=== PATIENT | female | born 1975 | race Caucasian/White ===

== ENCOUNTER → 2021-06-19 | Emergency (ER) | payer BC ==
[~2021-06-19] MED LIST: CEFTRIAXONE 1000 MG/VIAL ONE; KETOROLAC 30 MG/ML INJ ONE; MAGNESIUM OXIDE 400 MG TAB ONE; MAGNESIUM SULFATE 1 gm IVPB 1 GM/100 ML BAG IV ONE; MORPHINE 4 MG/ML SYR ONE; NA CHLORIDE 0.9% 1,000 ML ONE; ONDANSETRON 4 MG/2 ML VIAL ONE; PROMETHAZINE INJ 25 MG/ML AMP ONE; TAMSULOSIN 0.4 MG SR CAP ONE
[2021-06-19 08:16] LABS: ALT/SGPT 64 U/L (12-78); AST/SGOT 44 U/L (15-37); Albumin 3.7 g/dL (3.4-5.0); Alkaline Phosphatase 76 U/L (45-117); BUN Blood Urea Nitrogen 14 mg/dL (7-18); Bicarbonate 22 mmol/L (21-32); Bilirubin Direct < 0.1 mg/dL (0-0.2); Bilirubin Total 0.2 mg/dL (0.2-1.0); Glucose Level 170 mg/dL (74-106); Lipase 136 U/L (73-393); Potassium 4.4 mmol/L (3.5-5.1); Protein, Total 7.5 g/dL (6.4-8.2); Sodium Level 137 mmol/L (136-145)
[2021-06-19 08:19] LABS: Absolute Lymphocytes (CBC) 1.5 K/uL (0.7-4.9); MPV 8.5 fL (7.6-11.3); RBC Red Blood Cell Count 4.31 M/uL (3.86-4.86)
[2021-06-19 09:00] LABS: Urine Bacteria NONE SEEN /HPF (<20)
[2021-06-19 10:57] LABS: Urine Blood Trace-intact (Negative); Urine Glucose Negative (Negative); Urine Protein Negative (Negative); Urine Specific Gravity 1.015 (1.005-1.030)
--- NOTE | 2021-06-19 12:41 | RAD REPORT ---
EXAM DESCRIPTION: CT - Abdomen Pelvis W Contrast - 06/19/2021 7:07 am CLINICAL HISTORY: The patient is 49 years old and is Female: ABD PAIN AND VOMITING. TECHNIQUE: Axial computed tomography images of thee abdomen and pelvis with intravenous contrast. Sa gittal and coronal reformatted images were created and reviewed. This CT exam was performed using one or more of the following does reduction techniques: Automated exposure control, adjustment of the mA and/or kV according to patient size, and/or use of iterative reconstruction technique. COMPARISON: No relevant prior studies abailable. FINDINGS: Lung bases: Unremarkable. No mass. No consolidation. Mediastinum: Small hiatal hernia. ABDOMEN: Liver: 1 cm low density lesion in thee right live which is nonspecific but may represent a cyst. Ill- defined nonspecific 8 mm low-density lesion in thee dome of the liver. 1 cm low density lesion in the right liver adjacent to the IVC with nodular hypodensity centrally whi ch is nonspecific but may represent small hemangioma. Gallbladder and bile ducts: Unremarkable. No calcified stones. No ductal dilation. Pancreas: Unremarkable. No mass. No ductal dilation. Spleen: Unremarkable. No splenomegaly. Adrenals: Unremarkable. No mass. Kidneys and ureters: 4 mm left UVJ stone. Mild elft hydroureteronephrosis. Delayed enhabncement of th e left kidney. Multiple simple cysts in the kidneys bilaterally. ACR white Paper guidelines (Herdavon, et al. JACR 2018 ; 15(2):264-273) suggested no follow-up is necessary. There are a few small nonobstructing calcifications in the kidneys bilaterally. Stomach and bowel: Unremarkable. No obstruction. No mucosal thickening. PELVIS: Appendix: No findings to suggest acute appendicitis. Bladder: Unremarkable. No mass. Reproductive: Nodularity within thee uterus suggestive of fibroids. Suggestion of a corpus luteum cys t in the left ovary. ABDOMEN and PELVIS: Intraperitoneal space: Unremarkable. No free air. No significant fluid collection. Bones/Joints: No acute fracture. No dislocation. Soft tissues: Unremarkable. Vasculature: Unremarkable. No abdominal aortic aneurysm. Lymph nodes: Unremarkable. No enlarged lymph nodes. IMPRESSION: 4 mm left UVJ stone. Mild left hydroureteronephrosis. Delayed enhancement of the left ki dney. Electronically signed by: Jeff Roberts MD 06/19/2021 5:08 AM RECORDS ASSISTANT Due to temporary technical issues with the PACS/Fluency reporting system, reports are being signed by the in house radiologist without review as a courtesy to ensure prompt reporting. The interpreting r adiologist is fully responsible for the content of the report.
== END ==
LOC: ER 06:57
DX: N20.1 Calculus of ureter (principal); N39.0 Urinary tract infection, site not specified; Z20.822 Contact with and (suspected) exposure to COVID-19
CPT/HCPCS: 85025; 80048; 36415; 82565; 80076; 83690; 74177; U0003; Q9967; J2550; J3475; J7030; J2405 ×2; 81003; 81015

== ENCOUNTER 2022-03-04 07:27 | Emergency (ER) | payer BC ==
[2022-03-04] MEDS ORDERED: HYDROMORPHONE HCL 1 MG/ML INJ ONE (07:47)
[2022-03-04] MEDS ORDERED: NA CHLORIDE 0.9% 1,000 ML ONE (07:47)
[2022-03-04] MEDS ORDERED: ONDANSETRON 4 MG/2 ML VIAL ONE ×2 (07:47→09:56)
[2022-03-04 07:57] LABS: Absolute Lymphocytes (CBC) 0.9 K/uL (0.7-4.9); Hematocrit 31.2 % (36.0-45.0); Lymphocytes % 8.4 % (15.3-44.8); MPV 8.3 fL (7.6-11.3); RBC Red Blood Cell Count 4.39 M/uL (3.86-4.86)
--- NOTE | 2022-03-04 08:20 | RAD REPORT ---
EXAM DESCRIPTION: CT - Abdomen Pelvis Wo Contrast - 03/04/2022 8:03 am CLINICAL HISTORY: abdominal + flank pain COMPARISON: Abdomen Pelvis W Contrast dated 06/19/2021 TECHNIQUE: Axial [address] imaging of the abdomen and pelvis was performed without IV contrast. No IV contrast was given because of allergy, abnormal renal function, patient refusal or physician re quest. No oral contrast administered. All CT scans are performed using dose optimization technique as appropriate and may include automated exposure control or mA/KV adjustment according to patient size. FINDINGS: No suspicious findings in the lung bases. The liver, spleen and pancreas show no suspicious findings on non-contrast imaging. Gallbladder and b iliary tree are also without suspicious finding. Left greater than right bilateral calyx calculi are present 1-5 mm in size. No left-sided hydronephro sis or obstructing calculi. Patient has mild right-sided hydronephrosis down to the pelvic inlet leve l. The ureter is difficult to follow. However, there is a 2-3 mm calcification near the pelvic inlet that is believed to be an obstructing ureteral calculus. The patient does have numerous phleboliths. However, this calcification was not present on the June 19 examination. No significant adrenal fi nding. Isodense renal masses and pyelonephritis cannot be excluded in the absence of IV contrast. Sma ll left renal cyst is again identified lateral mid left kidney. Urinary bladder is mostly contracted. No bladder calculus seen. A lobulated multi fibroid uterus is noted similar to prior imaging. No primary ovarian process seen. No dilated bowel loops or bowel wall thickening. No acute GI process seen. No free air, free fluid or inflammatory stranding. No hernia, mass or bulky lymphadenopathy. No suspicious bony findings. IMPRESSION: Mild right-sided hydronephrosis secondary to a 2-3 mm calcification at the pelvic inlet. Multiple nonobstructing 1-5 mm sized calyx calculi, more pronounced on the left. Full assessment is limited is the absence of IV contrast.
[2022-03-04 09:10] LABS: Albumin 3.8 g/dL (3.4-5.0); Bilirubin Total 0.5 mg/dL (0.2-1.0); Protein, Total 7.7 g/dL (6.4-8.2)
[2022-03-04 09:11] LABS: Potassium 4.6 mmol/L (3.5-5.1)
[2022-03-04 09:47] LABS: Urine Blood 2+ (Negative); Urine Glucose Negative (Negative); Urine Protein Negative (Negative); Urine Specific Gravity 1.025 (1.005-1.030)
[2022-03-04] MEDS ORDERED: CEFTRIAXONE 1000 MG/VIAL ONE (09:56)
[2022-03-04] MEDS ORDERED: NA CHLORIDE 0.9% 50 ML IV ONE (09:56)
--- NOTE | 2022-03-04 09:56 | EDPHYS ---
Physician Documentation [facility] Name: Charly Hilliard Age: 46 yrs Sex: Female : 1975 Arrival Date: 03/04/2022 Time: 07:28 Bed 5 Private MD: ED Physician Paulo Marino HPI: 03/04 07:38 This 46 yrs old Female presents to ER via Unassigned with complaints of sp3 Nausea/Vomiting, Abdominal Pain. 07:38 46-year-old female with history of kidney stones and no other medical history presents sp3 to the ED for chief complaint nausea vomiting and abdominal pain. Her emesis started 11 PM yesterday and consisted mainly of dry heaving but today she states is "bile". Pain is described as lower abdomen centrally radiating bilaterally into the flanks. She denies dysuria, hematuria, urinary frequency. Last menstrual cycle was approximately 2 weeks ago. She denies any vaginal discharge or bleeding. She also denies diarrhea or potential bad food intake. On review of systems, she denies headache, URI symptoms, fever, chest pain, shortness of breath, rash, travel history, known sick contacts, or any other ROS at this time.. 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 - Social history:: Smoking status: Patient denies any tobacco usage or history of. ROS: 07:40 Constitutional: Negative for fever, chills, and weight loss, Eyes: Negative for injury, sp3 pain, redness, and discharge, ENT: Negative for injury, pain, and discharge, Neck: Negative for injury, pain, and swelling, Cardiovascular: Negative for chest pain, palpitations, and edema, Respiratory: Negative for shortness of breath, cough, wheezing, and pleuritic chest pain, : Negative for injury, bleeding, discharge, and swelling, MS/Extremity: Negative for injury and deformity, Skin: Negative for injury, rash, and discoloration, Neuro: Negative for headache, weakness, numbness, tingling, and seizure, Psych: Negative for depression, anxiety, suicide ideation, homicidal ideation, and hallucinations, Allergy/Immunology: Negative for hives, rash, and allergies, Endocrine: Negative for neck swelling, polydipsia, polyuria, polyphagia, and marked weight changes, Hematologic/Lymphatic: Negative for swollen nodes, abnormal bleeding, and unusual bruising. 07:40 All other systems are negative. Exam: 07:40 Constitutional: This is a well developed, well nourished patient who is awake, alert, sp3 and in no acute distress. Head/Face: Normocephalic, atraumatic. Eyes: Pupils equal round and reactive to light, extra-ocular motions intact. Lids and lashes normal. Conjunctiva and sclera are non-icteric and not injected. Cornea within normal limits. Periorbital areas with no swelling, redness, or edema. ENT: Nares patent. No nasal discharge, no septal abnormalities noted. External auditory canals are clear. Oropharynx with no redness, swelling, or masses, exudates, or evidence of obstruction, uvula midline. Mucous membranes moist. Neck: Trachea midline, no thyromegaly or masses palpated, and no cervical lymphadenopathy. Supple, full range of motion without nuchal rigidity, or vertebral point tenderness. No Meningismus. Chest/axilla: Normal chest wall appearance and motion. Nontender with no deformity. No lesions are appreciated. Cardiovascular: Regular rate and rhythm with a normal S1 and S2. No gallops, murmurs, or rubs. Normal PMI, no JVD. No pulse deficits. Respiratory: Lungs have equal breath sounds bilaterally, clear to auscultation and percussion. No rales, rhonchi or wheezes noted. No increased work of breathing, no retractions or nasal flaring. Back: No spinal tenderness. No costovertebral tenderness. Full range of motion. Skin: Warm, dry with normal turgor. Normal color with no rashes, no lesions, and no evidence of cellulitis. MS/ Extremity: Pulses equal, no cyanosis. Neurovascular intact. Full, normal range of motion. Neuro: Awake and alert, GCS 15, oriented to person, place, time, and situation. Cranial nerves II-XII grossly intact. Motor strength 5/5 in all extremities. Sensory grossly intact. Cerebellar exam normal. Normal gait. Psych: Awake, alert, with orientation to person, place and time. Behavior, mood, and affect are within normal limits. 07:40 Abdomen/GI: Reviewed without peritoneal signs, rebound or guarding. Positive CVA tenderness bilaterally.. Vital Signs: 07:37 BP 135 / 77; Pulse 80; Resp 17; Temp 97.5(O); Pulse Ox 99% on R/A; Weight 79.38 kg; vg1 Height 5 ft. 3 in. (160.02 cm); Pain 8/10; 08:41 BP 104 / 69; Pulse 80; Resp 15; Pulse Ox 98% on R/A; vg1 09:49 BP 112 / 71; Pulse 64; Resp 15; Pulse Ox 98% on R/A; vg1 07:37 Body Mass Index 31.00 (79.38 kg, 160.02 cm) vg1 MDM: 07:31 Patient medically screened. sp3 07:41 Data reviewed: vital signs, nurses notes. ED course: 46-year-old female with history of sp3 kidney stones now with abdominal pain into her flank. Differential diagnosis includes kidney stone, pyelonephritis, UTI, gastroenteritis, functional abdominal pain, cholelithiasis, cholecystitis, pancreatic pathology. I am not highly suspicious for PROCUREMENT MANAGER etiology, bowel obstruction, sepsis, mesenteric ischemia, aortic pathology including dissection and aneurysm, any other critical findings at this time. I have ordered a CT scan of the abdomen/pelvis, laboratory values, urine analysis and we will administer Dilaudid and Zofran along with IV fluids for symptomatic treatment. Counseled family and patient on differential diagnosis and treatment plan and likely disposition options.. 09:54 ED course: Patient to be given Rocephin 1 g IV and discharged home on Bactrim p.o. She sp3 also received 1 L of normal saline. Urinalysis demonstrates positive leuk esterase and 3+ ketones. Patient also counseled on her anemia likely microcytic iron deficiency in origin. I have urged her to follow-up with her PCP to get a full work-up of this anemia. Patient verbalized understanding of entire plan including need for antibiotics and urology follow-up.. 03/04 07:38 Order name: CBC with Diff sp3 03/04 07:38 Order name: CMP; Complete Time: 09:34 sp3 03/04 07:38 Order name: Lipase; Complete Time: 09:34 sp3 03/04 07:38 Order name: Urine Microscopic Only sp3 03/04 08:02 Order name: CBC Smear Scan EDMS 03/04 09:47 Order name: Urine Dipstick-Ancillary EDMS 03/04 07:38 Order name: CT Abd/Pelvis - Without Contrast; Complete Time: 08:24 sp3 03/04 09:48 Order name: Urine --Ancillary (enter results) bd 03/04 10:14 Order name: Urine Culture EDPR 03/04 07:38 Order name: IV Saline Lock; Complete Time: 07:43 sp3 03/04 07:38 Order name: Labs collected and sent; Complete Time: 07:43 sp3 03/04 07:38 Order name: Urine Dipstick-Ancillary (obtain specimen); Complete Time: 09:48 sp3 03/04 07:38 Order name: Urine Test (obtain specimen); Complete Time: 09:48 sp3 Administered Medications: 07:47 Drug: NS 0.9% 1000 ml Route: IV; Rate: 1 bolus; Site: right antecubital; vg1 08:54 Follow up: IV Status: Completed infusion; IV Intake: 1000ml vg1 07:47 Drug: Zofran (Ondansetron) 4 mg Route: IVP; Site: right antecubital; vg1 08:40 Follow up: Response: No adverse reaction; No change in condition vg1 07:49 Drug: Dilaudid (HYDROmorphone) 1 mg Route: IVP; Site: right antecubital; vg1 08:40 Follow up: Response: Pain is decreased; RASS: Alert and Calm (0) vg1 09:57 Drug: Zofran (Ondansetron) 4 mg Route: IVP; Site: right antecubital; vg1 10:17 Follow up: Response: No adverse reaction vg1 10:00 Drug: Rocephin (cefTRIAXone) 1 grams Route: IV; Rate: calculated rate; Site: right vg1 antecubital; 10:17 Follow up: IV Status: Completed infusion vg1 Disposition Summary: 03/04/22 09:56 Discharge Ordered Location: Home sp3 Condition: Stable sp3 Diagnosis - Kidney stone, UTI, dehydration sp3 Discharge Instructions: - Discharge Summary Sheet sp3 - Kidney Stones sp3 - Urinary Tract Infection, Adult sp3 - Dietary Guidelines to Help Prevent Kidney Stones sp3 Forms: - Medication Reconciliation Form sp3 - Thank You Letter sp3 - Antibiotic Education sp3 - Prescription Opioid Use sp3 Prescriptions: - Zofran 4 mg Oral Tablet - take 1 tablet by ORAL route every 12 hours As needed; 20 tablet; Refills: 0, sp3 Product Selection Permitted - Bactrim DS 800-160 mg Oral Tablet - take 1 tablet by ORAL route every 12 hours for 10 days; 20 tablet; Refills: 0, sp3 Product Selection Permitted Signatures: Dispatcher [employer] Rebecca Raza RN RN vg1 Paulo Marino MD MD sp3
--- NOTE | 2022-03-04 09:56 | ER ---
Nurse's Notes [facility] Name: Charly Hilliard Age: 46 yrs Sex: Female : 1975 Arrival Date: 03/04/2022 Time: 07:28 Bed 5 Private MD: Diagnosis: Kidney stone, UTI, dehydration Presentation: 03/04 07:37 Chief complaint: Patient states: NV since last night around 2300. Stated has hx of vg1 kidneys stones, c/o lower ABD pain and back pain; burning upon urination. Coronavirus screen: Vaccine status: Patient reports being unvaccinated. Client denies travel out of the [place] in the last 14 days. Ebola Screen: Patient negative for fever greater than or equal to 101.5 degrees Fahrenheit, and additional compatible Ebola Virus Disease symptoms Patient denies exposure to infectious person. Initial Sepsis Screen: Does the patient meet any 2 criteria? No. Patient's initial sepsis screen is negative. Does the patient have a suspected source of infection? No. Patient's initial sepsis screen is negative. Risk Assessment: Do you want to hurt yourself or someone else? Patient reports no desire to harm self or others. Onset of symptoms was March 03, 2022. 07:37 Method Of Arrival: Ambulatory vg1 07:37 Acuity: JEFFERSON 3 vg1 Triage Assessment: 07:40 General: Appears in no apparent distress. uncomfortable, Behavior is cooperative. Pain: vg1 Complains of pain in right lower quadrant and left lower quadrant Pain currently is 8 out of 10 on a pain scale. Pain began 1 day ago. Noted to be grimacing, guarding. EENT: No signs and/or symptoms were reported regarding the EENT system. Neuro: Level of Consciousness is awake, alert, obeys commands, Oriented to person, place, time, situation. Cardiovascular: Patient's skin is warm and dry. Respiratory: Airway is patent Respiratory effort is even, unlabored. GI: Abdomen is flat, distended, Abdomen is tender to palpation in right lower quadrant and left lower quadrant Reports nausea, vomiting, since 03/03/22 \\T\\ 2300. : Reports burning with urination. Derm: Skin is pale. Musculoskeletal: Circulation, motion, and sensation intact. 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 - Social history:: Smoking status: Patient denies any tobacco usage or history of. Screenin:42 Abuse screen: Denies threats or abuse. Nutritional screening: No deficits noted. vg1 Tuberculosis screening: No symptoms or risk factors identified. Fall Risk No fall in past 12 months (0 pts). No secondary diagnosis (0 pts). IV access (20 points). Ambulatory Aid- None/Bed Rest/Nurse Assist (0 pts). Gait- Normal/Bed Rest/Wheelchair (0 pts) Mental Status- Oriented to own ability (0 pts). Total Meadows Fall Scale indicates No Risk (0-24 pts). Assessment: 07:42 Reassessment: SEE TRIAGE. vg1 07:53 Reassessment: Pt transported to CT via stretcher. vg1 08:40 Reassessment: Patient appears in no apparent distress at this time. Patient and/or vg1 family updated on plan of care and expected duration. Pain level reassessed. Patient is alert, oriented x 3, equal unlabored respirations, skin warm/dry/pink. pt stated pain has decreased, rated 6/10; stated "I just threw up a little again" Provider notified. 09:49 Reassessment: Patient appears in no apparent distress at this time. Patient and/or vg1 family updated on plan of care and expected duration. Pain level reassessed. Patient is alert, oriented x 3, equal unlabored respirations, skin warm/dry/pink. Pt actively vomiting; provider notified. Vital Signs: 07:37 BP 135 / 77; Pulse 80; Resp 17; Temp 97.5(O); Pulse Ox 99% on R/A; Weight 79.38 kg; vg1 Height 5 ft. 3 in. (160.02 cm); Pain 8/10; 08:41 BP 104 / 69; Pulse 80; Resp 15; Pulse Ox 98% on R/A; vg1 09:49 BP 112 / 71; Pulse 64; Resp 15; Pulse Ox 98% on R/A; vg1 07:37 Body Mass Index 31.00 (79.38 kg, 160.02 cm) vg1 ED Course: 07:28 Patient arrived in ED. am2 07:30 Paulo Marino MD is Attending Physician. sp3 07:37 Rebecca Galeano, RN is Primary Nurse. vg1 07:40 Triage completed. vg1 07:40 Arm band placed on. vg1 07:42 Patient has correct armband on for positive identification. Placed in gown. Bed in low vg1 position. Call light in reach. Side rails up X 1. Adult w/ patient. Pulse ox on. NIBP on. 07:42 Inserted saline lock: 20 gauge in right antecubital area, using aseptic technique. vg1 ,using aseptic technique. completed by ED staff. 08:05 CT Abd/Pelvis - Without Contrast In Process Unspecified. EDMS 10:18 No provider procedures requiring assistance completed. IV discontinued, intact, vg1 bleeding controlled, No redness/swelling at site. Pressure dressing applied. Administered Medications: 07:47 Drug: NS 0.9% 1000 ml Route: IV; Rate: 1 bolus; Site: right antecubital; vg1 08:54 Follow up: IV Status: Completed infusion; IV Intake: 1000ml vg1 07:47 Drug: Zofran (Ondansetron) 4 mg Route: IVP; Site: right antecubital; vg1 08:40 Follow up: Response: No adverse reaction; No change in condition vg1 07:49 Drug: Dilaudid (HYDROmorphone) 1 mg Route: IVP; Site: right antecubital; vg1 08:40 Follow up: Response: Pain is decreased; RASS: Alert and Calm (0) vg1 09:57 Drug: Zofran (Ondansetron) 4 mg Route: IVP; Site: right antecubital; vg1 10:17 Follow up: Response: No adverse reaction vg1 10:00 Drug: Rocephin (cefTRIAXone) 1 grams Route: IV; Rate: calculated rate; Site: right vg1 antecubital; 10:17 Follow up: IV Status: Completed infusion vg1 Medication: 07:43 VIS not applicable for this client. vg1 Intake: 08:54 IV: 1000ml; Total: 1000ml. vg1 Outcome: 09:56 Discharge ordered by . sp3 10:17 Discharged to home ambulatory, with family. vg1 10:17 Condition: good 10:17 Discharge instructions given to patient, family, Instructed on discharge instructions, follow up and referral plans. medication usage, Demonstrated understanding of instructions, follow-up care, medications, Prescriptions given X 2. 10:18 Patient left the ED. vg1 Signatures: Dispatcher [employer] EDTasneem Duncan Victoria, RN RN vg1 Paulo Marino MD MD sp3
[2022-03-04 10:08] LABS: Urine Mucus Slight /HPF (None Seen); Urine RBC >50 /HPF (None Seen)
[2022-03-04 10:18] LABS: Urine Specific Gravity/Preg 1.025 (1.005-1.030)
[2022-03-04 10:34] VITALS: TEMP 97.5
[2022-03-04 10:35] VITALS: O2SAT 98
[2022-03-04 10:36] VITALS: BP 112/71
[2022-03-04 13:11] LABS: Anisocytosis 1+; Blood Morphology Comment NOTED (NOT SEEN); Platelet Estimate ADEQ; White Blood Cell Scan OK (OK)
[2022-03-04 13:12] LABS: Hypochromasia 1+; Poikilocytosis 1+
== END 2022-03-04 10:18 | disposition home or self-care (01) ==
LOC: ER 07:27
DX: N39.0 Urinary tract infection, site not specified (principal); N20.0 Calculus of kidney; E86.0 Dehydration; Z87.442 Personal history of urinary calculi
CPT/HCPCS: 96365; 96361; 87088; 85025; 87086; 36415; 81025; 83690; 80053; 74176; 96375; 99284; J1170; J7030; J2405 ×2; 81003; 81015

== ENCOUNTER 2022-03-04 18:23 | Observation (INO) | payer BC ==
--- NOTE | 2022-03-04 18:37 | ER ---
Nurse's Notes [facility] Name: Charly Hilliard Age: 46 yrs Sex: Female : 1975 Arrival Date: 03/04/2022 Time: 18:24 Bed 23 [facility] MD: Diagnosis: Kidney stone, dehydration, vomiting. Presentation: 03/04 18:34 Chief complaint: Patient states: Seen in ER earlier today and diagnosed with kidney ss stone and dehydration. Pt reports that even with her Zofran prescription she is vomiting and her pain is 9/10. Coronavirus screen: Client denies travel out of the [place] in the last 14 days. Ebola Screen: Patient denies exposure to infectious person. Patient denies travel to an Ebola-affected area in the 21 days before illness onset. Initial Sepsis Screen: Does the patient meet any 2 criteria? No. Patient's initial sepsis screen is negative. Does the patient have a suspected source of infection? No. Patient's initial sepsis screen is negative. Risk Assessment: Do you want to hurt yourself or someone else? Patient reports no desire to harm self or others. Onset of symptoms was March 04, 2022. 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 - Social history:: Smoking status: Patient denies any tobacco usage or history of. Screenin:59 Abuse screen: Denies threats or abuse. Denies injuries from another. Nutritional tp1 screening: No deficits noted. Tuberculosis screening: No symptoms or risk factors identified. Fall Risk No fall in past 12 months (0 pts). No secondary diagnosis (0 pts). IV access (20 points). Ambulatory Aid- None/Bed Rest/Nurse Assist (0 pts). Gait- Normal/Bed Rest/Wheelchair (0 pts) Mental Status- Oriented to own ability (0 pts). Total Meadows Fall Scale indicates No Risk (0-24 pts). Assessment: 18:35 General: Appears in no apparent distress. uncomfortable, Behavior is calm, cooperative. tp1 Pain: Complains of pain in abdomen Pain radiates to back Pain currently is 9 out of 10 on a pain scale. Quality of pain is described as sharp, Is continuous. Neuro: Level of Consciousness is awake, alert, obeys commands, Oriented to person, place, time, situation. Cardiovascular: Patient's skin is warm and dry. Respiratory: Airway is patent Respiratory effort is even, unlabored. GI: Abdomen is flat, non-distended, Abd is soft and non tender Reports nausea, vomiting. : Denies burning with urination. EENT: No signs and/or symptoms were reported regarding the EENT system. Derm: Skin is pink, warm \T\ dry. Musculoskeletal: Circulation, motion, and sensation intact. 19:29 Reassessment: Patient appears in no apparent distress at this time. No changes from tp1 previously documented assessment. Patient and/or family updated on plan of care and expected duration. Pain level reassessed. Patient is alert, oriented x 3, equal unlabored respirations, skin warm/dry/pink. states pain and nausea have improved. rates pain 5/10. 20:20 Reassessment: Patient appears in no apparent distress at this time. No changes from tp1 previously documented assessment. Patient and/or family updated on plan of care and expected duration. Pain level reassessed. resting in bed with eyes closed. 21:44 Reassessment: report given to Macarena ANDREWS. tp1 Vital Signs: 18:34 BP 128 / 64; Pulse 77; Resp 17; Temp 98.0(O); Pulse Ox 100% on R/A; Weight 79.38 kg; Height 5 ft. 3 in. (160.02 cm); Pain 9/10; 19:30 BP 107 / 65; Pulse 88; Resp 16; Pulse Ox 96% on R/A; tp1 20:20 BP 108 / 65; Pulse 72; Resp 16; Pulse Ox 96% on R/A; tp1 18:34 Body Mass Index 31.00 (79.38 kg, 160.02 cm) ED Course: 18:24 Patient arrived in ED. mr 18:30 Paulo Marino MD is Attending Physician. sp3 18:35 Nicole Wynn, JULIANA is Primary Nurse. tp1 18:35 Triage completed. ss 18:35 Arm band placed on right wrist. ss 18:36 Jcarlos Thomson MD is Hospitalizing Provider. sp3 18:36 Patient has correct armband on for positive identification. Bed in low position. Call tp1 light in reach. Side rails up X2. Adult w/ patient. Pulse ox on. NIBP on. 18:37 SARS RAPID Sent. tp1 18:58 Inserted saline lock: 20 gauge in right antecubital area, using aseptic technique. tp1 19:00 No provider procedures requiring assistance completed. tp1 20:21 Patient admitted, IV remains in place. tp1 Administered Medications: 18:53 Drug: Phenergan (promethazine) 12.5 mg Route: IVP; Site: right antecubital; tp1 19:29 Follow up: Response: Nausea is decreased tp1 18:55 Drug: Dilaudid (HYDROmorphone) 1 mg Route: IVP; Site: right antecubital; tp1 19:29 Follow up: Response: Pain is decreased tp1 18:58 Drug: NS 0.9% 1000 ml Route: IV; Rate: 1 bolus; Site: right antecubital; tp1 20:21 Follow up: IV Status: Infusion continued upon admission tp1 19:29 Drug: ProTONIX (pantoprazole) 40 mg Route: IVP; Site: right antecubital; tp1 20:21 Follow up: Response: No adverse reaction tp1 Medication: 19:00 VIS not applicable for this client. tp1 Outcome: 18:37 Decision to Hospitalize by Provider. sp3 20:21 Admitted to ER Hold. Please see [facility] for further documentation. tp1 20:21 Condition: good 20:21 Discharge instructions given to patient, Instructed on the need for admit, Demonstrated understanding of instructions. 21:50 Patient left the ED. tp1 Signatures: Angelica Nicholas mr Aury Diehl RN RN ss Paulo Marino MD MD sp3 Nicole Wynn RN RN tp1
--- NOTE | 2022-03-04 18:37 | EDPHYS ---
Physician Documentation [facility] Name: Charly Hilliard Age: 46 yrs Sex: Female : 1975 Arrival Date: 03/04/2022 Time: 18:24 Bed 23 Private MD: ED Physician Paulo Marino HPI: 03/04 18:33 This 46 yrs old Female presents to ER via Unassigned with complaints of Abdominal Pain, sp3 Vomiting. 18:33 46-year-old female seen by me earlier this morning and diagnosed with kidney stone, sp3 dehydration, and vomiting who was discharged on Zofran and Bactrim now returns for continued emesis and worsening dehydration. I instruction to her were to return if her symptoms worsen. She called the ER and asked about her symptoms and I told her to take an additional Zofran to see how that worked. However she continues to decline and she is appropriately back into the ED. We will get her admitted to the hospital at this time.. 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 - Social history:: Smoking status: Patient denies any tobacco usage or history of. ROS: 18:34 Eyes: Negative for injury, pain, redness, and discharge, ENT: Negative for injury, sp3 pain, and discharge, Neck: Negative for injury, pain, and swelling, Cardiovascular: Negative for chest pain, palpitations, and edema, Respiratory: Negative for shortness of breath, cough, wheezing, and pleuritic chest pain, MS/Extremity: Negative for injury and deformity, Skin: Negative for injury, rash, and discoloration, Neuro: Negative for headache, weakness, numbness, tingling, and seizure. 18:34 All other systems are negative. Exam: 18:34 Head/Face: Normocephalic, atraumatic. Eyes: Pupils equal round and reactive to light, sp3 extra-ocular motions intact. Lids and lashes normal. Conjunctiva and sclera are non-icteric and not injected. Cornea within normal limits. Periorbital areas with no swelling, redness, or edema. ENT: Nares patent. No nasal discharge, no septal abnormalities noted. External auditory canals are clear. Oropharynx with no redness, swelling, or masses, exudates, or evidence of obstruction, uvula midline. Mucous membranes moist. Neck: Trachea midline, no thyromegaly or masses palpated, and no cervical lymphadenopathy. Supple, full range of motion without nuchal rigidity, or vertebral point tenderness. No Meningismus. Chest/axilla: Normal chest wall appearance and motion. Nontender with no deformity. No lesions are appreciated. Cardiovascular: Regular rate and rhythm with a normal S1 and S2. No gallops, murmurs, or rubs. Normal PMI, no JVD. No pulse deficits. Respiratory: Lungs have equal breath sounds bilaterally, clear to auscultation and percussion. No rales, rhonchi or wheezes noted. No increased work of breathing, no retractions or nasal flaring. Skin: Warm, dry with normal turgor. Normal color with no rashes, no lesions, and no evidence of cellulitis. MS/ Extremity: Pulses equal, no cyanosis. Neurovascular intact. Full, normal range of motion. Neuro: Awake and alert, GCS 15, oriented to person, place, time, and situation. Cranial nerves II-XII grossly intact. Motor strength 5/5 in all extremities. Sensory grossly intact. Cerebellar exam normal. Normal gait. Psych: Awake, alert, with orientation to person, place and time. Behavior, mood, and affect are within normal limits. 18:34 Abdomen/GI: Generally weak but alert and oriented. Abdomen exam is unchanged from earlier with mild diffuse tenderness bilateral flank pain. No peritoneal signs including rebound or guarding.. Vital Signs: 18:34 BP 128 / 64; Pulse 77; Resp 17; Temp 98.0(O); Pulse Ox 100% on R/A; Weight 79.38 kg; ss Height 5 ft. 3 in. (160.02 cm); Pain 9/10; 19:30 BP 107 / 65; Pulse 88; Resp 16; Pulse Ox 96% on R/A; tp1 20:20 BP 108 / 65; Pulse 72; Resp 16; Pulse Ox 96% on R/A; tp1 18:34 Body Mass Index 31.00 (79.38 kg, 160.02 cm) MDM: 18:33 Patient medically screened. sp3 18:35 Data reviewed: vital signs, nurses notes, EMS record, old medical records. ED course: sp3 46-year-old female with continued abdominal pain, vomiting, dehydration from an earlier kidney stone diagnosis this morning. Please see my prior note for further background on that visit. Currently we will admit her under 23-hour observation to internal medicine and administer Phenergan and Dilaudid for her symptoms. No need to repeat lab work at this time. Further per internal medicine team.. 03/04 18:33 Order name: SARS RAPID; Complete Time: 20:03 ss 03/04 18:38 Order name: CBC with Diff; Complete Time: 20:03 la1 03/04 18:38 Order name: BMP; Complete Time: 20:03 la1 03/04 19:40 Order name: CBC Smear Scan; Complete Time: 20:03 EDMS 03/04 18:38 Order name: IV Saline Lock; Complete Time: 18:59 sp3 Administered Medications: 18:53 Drug: Phenergan (promethazine) 12.5 mg Route: IVP; Site: right antecubital; tp1 19:29 Follow up: Response: Nausea is decreased tp1 18:55 Drug: Dilaudid (HYDROmorphone) 1 mg Route: IVP; Site: right antecubital; tp1 19:29 Follow up: Response: Pain is decreased tp1 18:58 Drug: NS 0.9% 1000 ml Route: IV; Rate: 1 bolus; Site: right antecubital; tp1 20:21 Follow up: IV Status: Infusion continued upon admission tp1 19:29 Drug: ProTONIX (pantoprazole) 40 mg Route: IVP; Site: right antecubital; tp1 20:21 Follow up: Response: No adverse reaction tp1 Disposition Summary: 03/04/22 18:37 Hospitalization Ordered Hospitalization Status: Observation sp3 Provider: Jcarlos Thomson sp3 Condition: Stable sp3 Problem: an acute exacerbation sp3 Symptoms: have worsened sp3 Bed/Room Type: Standard sp3 Location: [facility](03/04/22 20:59) mw Room Assignment: 270-(03/04/22 20:59) mw Diagnosis - Kidney stone, dehydration, vomiting. sp3 Forms: - Medication Reconciliation Form sp3 - SBAR form sp3 Signatures: Dispatcher [employer] EDMS Judie Mayo RN RN mw Aury Diehl RN RN ss Conner Perez, SOFTWARE SECURITY ARCHITECT-C SOFTWARE SECURITY ARCHITECT-Cla1 Paulo Marino MD MD sp3 Nicole Wynn RN RN tp1 Corrections: (The following items were deleted from the chart) 18:42 18:38 Labs collected and sent ordered. sp3 kj1 20:18 18:37 Telemetry/MedSurg (observation) sp3 mw 20:18 18:37 sp3 mw 20:59 20:18 BR ER HOLD mw mw 20:59 20:18 ERHOLD- mw mw
[2022-03-04] MEDS ORDERED: NA CHLORIDE 0.9% 1,000 ML ONE (18:44)
[2022-03-04] MEDS ORDERED: PROMETHAZINE INJ 25 MG/ML AMP ONE (18:44)
[2022-03-04] MEDS ORDERED: HYDROMORPHONE HCL 1 MG/ML INJ ONE (18:44)
[2022-03-04 19:01] LABS: SARS-CoV-2 Antigen Rapid Res Negative (Negative)
[2022-03-04] MEDS ORDERED: PANTOPRAZOLE 40 MG INJ ONE (19:22)
--- NOTE | 2022-03-04 19:30 | P.HP ---
Certification for Inpatient Patient admitted to: Observation With expected LOS: <2 Midnights Patient will require the following post-hospital care: None Practitioner: I am a practitioner with admitting privileges, knowledge of patient current condition, hospital course, and medical plan of care. Services: Services provided to patient in accordance with Admission requirements found in Title 42 Section 412.3 of the Code of Federal Regulations Patient History Date of Service: 03/04/22 Reason for admission: Intractable vomiting, kidney stone History of Present Illness: 46-year-old female with history of kidney stones presents emergency department for severe abdominal pain, intractable vomiting. She was seen earlier today in the emergency department and diagnosed with mild right-sided hydronephrosis secondary to a 2 to 3 mm calcification at the pelvic inlet. Multiple nonobstructing 1 to 5 mm size calyx calculi or pronounced on the left. The 2 to 3 mm calcification near the pelvic inlet is believed to be a obstructing ureteral calculus. Patient reports her symptoms are very similar to previous kidney stone. Her labs were also significant for mild leukocytosis and microcytic anemia she denies any melena, hematochezia, hematemesis. She was discharged home on antibiotics given suspected urinary tract infection as well as Zofran for nausea although she continued to vomit and have severe abdominal pain. She return to the emergency department and was reevaluated, ED provider wishes to admit for further evaluation and management of intractable abdominal pain/vomiting secondary to kidney stone. - Past Medical/Surgical History -: Kidney stones -: Appendectomy Psychosocial/ Personal History: Patient lives at home with her - Family History Father Notes: Hyperlipidemia - Social History Smoking Status: Never smoker Alcohol use: No CD- Drugs: No Caffeine use: No Place of Residence: Home Review of Systems 10-point ROS is otherwise unremarkable Gastrointestinal: Nausea, Vomiting, Abdominal Pain Physical Examination - Physical Exam General: Alert, In no apparent distress, Oriented x3 HEENT: Atraumatic, PERRLA, Mucous membr. moist/pink, EOMI, Sclerae nonicteric Neck: Supple, 2+ carotid pulse no bruit, No LAD, Without JVD or thyroid abnormality Respiratory: Clear to auscultation bilaterally, Normal air movement Cardiovascular: Regular rate/rhythm, Normal S1 S2 Capillary refill: <2 Seconds Gastrointestinal: Normal bowel sounds, No tenderness Musculoskeletal: No tenderness Integumentary: No rashes Neurological: Normal speech, Normal strength at 5/5 x4 extr, Normal tone, Normal affect Assessment and Plan - Plan Assessment: Intractable vomiting, abdominal pain secondary to 3 mm right obstructing ureteral calculus with mild hydronephrosis Plan: Intractable vomiting, abdominal pain secondary to 3 mm right obstructing ureteral calculus with mild hydronephrosis: N.p.o., advance diet as tolerated, IV PPI, IV fluid, as needed pain medications and antiemetics. Patient reports passing stone approximate 1 year ago without any need for intervention, relatively small stone at this time. We will monitor renal function closely, consult urology. Once patient is tolerating p.o. would likely benefit with Flomax. DVT PPX: Lovenox Code status: Full Discharge Plan: Home Plan to discharge in: 24 Hours - Advance Directives Does patient have a Living Will: No Does patient have a Durable POA for Healthcare: No - Code Status/Comfort Care Code Status Assessed: Yes (Full code) Critical Care: No Time Spent Managing Pts Care (In Minutes): 55
[2022-03-04 19:36] LABS: Absolute Lymphocytes (CBC) 0.7 K/uL (0.7-4.9); Hematocrit 26.9 % (36.0-45.0); Lymphocytes % 5.5 % (15.3-44.8); MCV 71.3 fL (80-100); MPV 8.4 fL (7.6-11.3); RBC Red Blood Cell Count 3.77 M/uL (3.86-4.86)
[2022-03-04 19:40] LABS: Blood Morphology Comment NOTED (NOT SEEN); Hypochromasia 1+; Platelet Estimate ADEQ; White Blood Cell Scan OK (OK)
[2022-03-04 19:55] LABS: Potassium 3.7 mmol/L (3.5-5.1)
[2022-03-04] MEDS ORDERED: PROMETHAZINE INJ 25 MG/ML AMP IV PRN (21:37)
[2022-03-04] MEDS ORDERED: ONDANSETRON 4 MG/2 ML VIAL IV PRN (21:37)
[2022-03-04] MEDS ORDERED: HYDROMORPHONE HCL 1 MG/ML INJ IV PRN (21:37)
[2022-03-04] MEDS: Ringers Lactate 1,000 ML IV SCH (22:07)
[2022-03-04 22:30] VITALS: BMI 30.9
[2022-03-04 23:02] VITALS: O2SAT 100
[2022-03-05] MEDS ORDERED: ACETAMINOPHEN 500 MG TAB PO ONE (00:11)
[2022-03-05] MEDS: Ringers Lactate 1,000 ML IV SCH (05:45)
[2022-03-05 06:14] LABS: Hematocrit 26.5 % (36.0-45.0); MCV 71.8 fL (80-100); MPV 8.3 fL (7.6-11.3); RBC Red Blood Cell Count 3.68 M/uL (3.86-4.86)
[2022-03-05 06:15] LABS: Absolute Lymphocytes (CBC) 1.7 K/uL (0.7-4.9)
[2022-03-05] MEDS ORDERED: ACETAMINOPHEN 500 MG TAB PO PRN (06:31)
[2022-03-05 06:32] LABS: Ferritin 4.6 ng/mL (8-388); Potassium 3.3 mmol/L (3.5-5.1)
[2022-03-05] MEDS ORDERED: INFLUENZA VACCINE (for 6+ mo) 0.5 ML DOSE IMVAC ONE (08:00)
[2022-03-05] MEDS ORDERED: TAMSULOSIN 0.4 MG SR CAP PO SCH (09:00)
[2022-03-05] MEDS ORDERED: ENOXAPARIN 40 MG/0.4 ML SQ SCH (09:00)
[2022-03-05 09:01] VITALS: BP 120/66; TEMP 98.8
--- NOTE | 2022-03-05 21:51 | P.DS ---
Admission Date: 03/04/22 Discharge Date: 03/05/22 Disposition: ROUTINE DISCHARGE Discharge Condition: GOOD Reason for Admission: Intractable vomiting, kidney stone Brief History of Present Illness: 46yo F, PMH: kidney stones Presented to ED with severe abdominal pain, intractable vomiting. She was seen earlier today in the emergency department and diagnosed with mild right-sided hydronephrosis secondary to a 2 to 3 mm calcification at the pelvic inlet. Multiple nonobstructing 1 to 5 mm size calyx calculi or pronounced on the left. The 2 to 3 mm calcification near the pelvic inlet is believed to be a obstructing ureteral calculus. Patient reports her symptoms are very similar to previous kidney stone. Her labs were also significant for mild leukocytosis and microcytic anemia she denies any melena, hematochezia, hematemesis. She was discharged home on antibiotics given suspected urinary tract infection as well as Zofran for nausea although she continued to vomit and have severe abdominal pain. She return to the emergency department and was reevaluated, ED provider wishes to admit for further evaluation and management of intractable abdominal pain/vomiting secondary to kidney stone. Hospital Course: Problem List Intractable vomiting, abdominal pain secondary to 3 mm right obstructing ureteral calculus with mild hydronephrosis Patient presented with abdominal pain and nausea/vomiting. She was found to have a 3mm kidney stone. Symptoms resolved after patient urinated, suspected to have passed the stone. She is to continue Bactrim as ordered by ED physician yesterday. Recommend follow up with Urology, 2nd stone patient has developed, and gets 1-2 UTIs / year She was also noted to be anemic. Workup consistent with iron deficiency anemia. She reported heavier menstrual periods over the last 1-2 years. Recommended daily iron supplementation. She does have history of constipation with vitamins, discussed stool softener +/- every other day dosing. Follow up with PCP, recheck levels in the near future. Follow up with OBGYN as well Follow up: PCP within 1 week Urology OBGYN Vital Signs/Physical Exam: Temp Pulse Resp BP Pulse Ox 98.8 F 82 17 120/66 99 03/05/22 08:00 03/05/22 08:00 03/05/22 08:00 03/05/22 08:00 03/05/22 08:00 General: Alert, In no apparent distress, Oriented x3 HEENT: EOMI, Sclerae nonicteric Neck: Supple, No LAD Respiratory: Clear to auscultation bilaterally, Normal air movement Cardiovascular: No edema, Regular rate/rhythm Gastrointestinal: Soft and benign, Non-distended, No tenderness Musculoskeletal: No contractures, No tenderness Integumentary: No rashes, No significant lesion Neurological: Normal speech, Normal strength at 5/5 x4 extr Laboratory Data at Discharge: WBC 9.90 K/uL (4.3-10.9) 03/05/22 05:55 Hgb 8.0 g/dL (12.0-15.0) L 03/05/22 05:55 Hct 26.5 % (36.0-45.0) L 03/05/22 05:55 Plt Count 219 K/uL (152-406) 03/05/22 05:55 Sodium 142 mmol/L (136-145) 03/05/22 05:55 Potassium 3.3 mmol/L (3.5-5.1) L 03/05/22 05:55 BUN 11 mg/dL (7-18) 03/05/22 05:55 Creatinine 0.78 mg/dL (0.55-1.3) 03/05/22 05:55 Glucose 91 mg/dL (74-106) 03/05/22 05:55 Home Medications: Ferrous Sulfate [Iron] 325 mg PO DAILY 30 Days #30 tab 03/05/22 New Medications: Ferrous Sulfate [Iron] 325 mg PO DAILY 30 Days #30 tab Physician Discharge Instructions: Patient presented with abdominal pain and nausea/vomiting. She was found to have a 3mm kidney stone. Symptoms resolved after patient urinated, suspected to have passed the stone. She is to continue Bactrim as ordered by ED physician yesterday. Recommend follow up with Urology, 2nd stone patient has developed, and gets 1-2 UTIs / year She was also noted to be anemic. Workup consistent with iron deficiency anemia. She reported heavier menstrual periods over the last 1-2 years. Recommended daily iron supplementation. She does have history of constipation with vitamins, discussed stool softener +/- every other day dosing. Follow up with PCP, recheck levels in the near future. Follow up with OBGYN as well Follow up: PCP within 1 week Urology OBGYN Followup: OOT,OOT [Primary Care Provider] - Time spent managing pt's care (in minutes): 45
== END 2022-03-05 08:59 | disposition home or self-care (01) ==
LOC: ER 18:23 → ERHOLD 19:05 → 2ND-WC 21:44
PROVIDERS: ADMIT Hospitalist; ATTEND Hospitalist
DX: N13.2 Hydronephrosis with renal and ureteral calculous obstruction (principal); R11.10 Vomiting, unspecified; E86.0 Dehydration; D50.9 Iron deficiency anemia, unspecified; Z87.440 Personal history of urinary (tract) infections; Z28.310 Unvaccinated for COVID-19; Z20.822 Contact with and (suspected) exposure to COVID-19
CPT/HCPCS: 96361; 85025 ×2; 80048 ×2; 36415; 82728; 83540; 84466; 96375; 96374; 99285; 87811; J2550; C9113; J1650; J1170; J7120; J7030; G0378 ×3